=== PATIENT | female | born 1990 | race Caucasian/White ===

== ENCOUNTER → 2017-01-21 | Outpatient (CLI) | payer BC | LOC: FIMAGING 13:16 | PROVIDERS: ATTEND Advanced Practice Midwife | DX: O36.62X0 Maternal care for excessive fetal growth, second trimester, not applicable or unspecified (principal); Z3A.20 20 weeks gestation of pregnancy ==

== ENCOUNTER → 2017-04-28 | Outpatient (CLI) | payer BC | LOC: FIMAGING 12:29 | PROVIDERS: ATTEND Advanced Practice Midwife | DX: O36.63X0 Maternal care for excessive fetal growth, third trimester, not applicable or unspecified (principal); Z3A.34 34 weeks gestation of pregnancy ==

== ENCOUNTER 2017-04-29 19:59 | Observation (INO) | payer BC ==
[2017-04-29] MEDS ORDERED: TERBUTALINE SULFATE 1 MG/ML VIAL SC ONE (20:49)
[2017-04-29] MEDS ORDERED: LR 500 ML IV ONE (20:58)
--- NOTE | 2017-04-29 21:38 | GHP ---
[f rep st] PREOP HISTORY AND PHYSICAL DATE OF ADMISSION: 04/29/2017 REPORT TITLE: Observation OB Note HISTORY OF PRESENT ILLNESS: The patient is a 27-year-old 4, para 2-0-1-2, who is 34-5/7 week s' gestation, a patient who is receiving care at the [facility], who presented com plaining of contractions. Patient has a history of contractions in both of her prior pregnancies; however, term deliveries with both at 40 and 41 weeks. She presented today complaining of worsening contractions. She reports on Friday, she had an episode of a loss of mucous plug and increased discharge, and Friday her contractions increased in intensity. They increased over the co urse of Friday and were worsening today, having 6 or 7 contractions an hour at the most, also increas ing intensity and increasing in frequency. She is having to breathe through them and getting very un comfortable. She denies leakage of fluid or vaginal bleeding. Has had good movement. The pat ient had a followup growth ultrasound with Dr. Trish Koroma yesterday, 04/28/2017. Baby is size great er than dates. Estimated weight at stage is 3101 g, 97th percentile. SID is normal. Anatomy is normal. OTHER REVIEW OF SYSTEMS: Negative except for contractions as above. OBJECTIVE: VITAL SIGNS: She is afebrile. Vital signs stable. heart tones are 130s, reactive , moderate variability category I. She has irritability on the monitor, but no true contractions. PELVIC: Her cervix is closed, 50%, -2, soft, baby is cephalic. ASSESSMENT AND PLAN: 27-year-old 4, para 2-0-1-2 at 34-5/7 weeks' gestation with con tractions. I have offered the patient IV fluid hydration bolus and subcu terbutaline to attempt to h elp the uterine irritability. At this time, I will not proceed with steroids for lung maturity . I do not feel that she at true risk for contractions; she has no cervical change. Will ob serve closely. /[id number]/MODL
== END 2017-04-29 23:16 | disposition home or self-care (01) ==
LOC: FLD 19:59
PROVIDERS: ADMIT Obstetrics & Gynecology; ATTEND Obstetrics & Gynecology
DX: O99.89 Other specified diseases and conditions complicating pregnancy, childbirth and the puerperium (principal); Z3A.34 34 weeks gestation of pregnancy
CPT/HCPCS: G0378 ×2

== ENCOUNTER 2017-06-02 21:12 | Inpatient (IN) | payer BC ==
[2017-06-02] MEDS ORDERED: EPSOM SALT 454 GM TP PRN (21:19)
[2017-06-02] MEDS ORDERED: OXYTOCIN 20 UNIT in LR 1,000 ML IV PRN (21:19)
[2017-06-02] MEDS ORDERED: TERBUTALINE SULFATE 1 MG/ML VIAL IV PRN (21:19)
[2017-06-02] MEDS ORDERED: OLIVE OIL 118 ML BTL MISC PRN (21:19)
[2017-06-02] MEDS ORDERED: LR 1,000 ML IV PRN (21:19)
[2017-06-02] MEDS ORDERED: AMMONIA AROMATIC 1 EACH AMP IH ONE (21:35)
[2017-06-02] MEDS ORDERED: LIDOCAINE 1% 300 MG/30 ML SDV ONE (21:35)
[2017-06-02] MEDS ORDERED: TERBUTALINE SULFATE 1 MG/ML VIAL ONE (21:35)
[2017-06-02] MEDS ORDERED: OLIVE OIL 118 ML BTL ONE (21:35)
[2017-06-02] MEDS ORDERED: MISOPROSTOL 200 MCG TAB ONE (21:35)
[2017-06-02] MEDS ORDERED: OXYTOCIN 10 UNIT/ML VIAL ONE (21:35)
--- NOTE | 2017-06-02 21:44 | OBPROG ---
Labor Progress Note Assessment/Plan: Assessment: cat 1 fhr feeling pain with the contractions however far apart denies great pain coping well with the contractions 2/50/-2 cephalic with last exam per innersole fitter luis e from the center leaking clear fluid gbs negative multip gbs negative Plan:prolonged rom/ planned pitocin per protocol ok with the plan 06/02/17 21:40 Subjective/Intrapartum Course: 06/02/17 21:39 Feeling regular contractions however not routinely has been ruptured 1800p 06/01. Clear fluid. Denies bs. States feling + movement - SVE Dilation (cm): 2 Effacement (%): Less than 50 Station: -2 Membranes: SROM Amniotic Fluid Color: Clear - Contraction Pattern Assessment Current Contraction Pattern: Regular - Physical Exam General Appearance: WD/WN, alert, no apparent distress Respiratory: chest non-tender, lungs clear, normal breath sounds Cardiac/Chest: regular rate, rhythm Abdomen: normal bowel sounds Extremities: normal range of motion, Monique's sign (negative bilaterally) DTR- Lower Extremities: Knee (R): 1+, Knee (L): 1+ (no clonus) Skin: normal color, warm/dry Neuro/Psych: no motor/sensory deficits, alert, normal mood/affect, oriented x 3 ICD10 Worksheet Patient Problems: Problems Problem Status Onset Abdominal pain affecting Acute IUD (intrauterine device) in place Acute Incomplete Acute pre term contractions Acute
[2017-06-02] MEDS ORDERED: OXYTOCIN 30 UNIT in NS 500 ML IV SCH (21:45)
--- NOTE | 2017-06-02 22:14 | GHP ---
[f rep st] HISTORY AND PHYSICAL DATE OF ADMISSION: 06/02/2017 HISTORY OF PRESENT ILLNESS: The patient is a 27-year-old, 4, term 2, P0, A1, living 2, who c omes in from the [facility] with complaint of prolonged rupture of membranes since 6 p.m., on 06/01/2017. The patient had an early ultrasound with an MARIA EUGENIA of 06/05/2017, so she is 39 and 4/7 w eeks today. Denies bloody show. States clear fluid. States positive movement. MEDICAL HISTORY: Depression. ALLERGIES: Food allergies: Avocado, coriander, donohue and eggs. Denies allergies to medications. PREVIOUS PREGNANCIES: In 2008, 40 weeks, vaginal, a male, 24 hours of labor, 8 pounds 7 ounces. A b oy in 2010, 41 weeks, vaginal. A female, 8 hours of labor, 9-1/2 pounds. In 2015, 9 weeks, a miscar riage, [facility]. The patient is planning on . GYNECOLOGICAL HISTORY: Natural family planning, ParaGard and condoms. Negative other gynecological history. SOCIAL HISTORY: Patient is . Denies drug use. Denies tobacco use. PAST SURGICAL HISTORY: In 2014, wisdom tooth extraction. FAMILY HISTORY: Noncontributory. LABORATORY DATA: Patient is A positive, antibody negative. RPR is nonreactive. HIV is negative. R ubella is immune. Hepatitis is nonreactive. Hepatitis C is nonreactive. Pap was within normal limi ts. Gonorrhea and chlamydia were negative. GBS was negative. PHYSICAL EXAMINATION: GENERAL: Patient is awake, alert, oriented x3. LUNGS: Clear bilaterally. A BDOMEN: Bowel sounds are positive in all 4 quadrants. DTRs are 1+ bilaterally with no clonus. Margie ns sign is negative bilaterally. The patient is jose luis irregularly. Last exam at 6 o'clock by Angelica, the client resolution specialist from [facility]. Patient was 250, -2 cephalic. PLAN OF CARE: 1. GBS negative. 2. Pitocin per protocol. 3. Discussed risks, benefits, and alternatives with the patient, has consented to Pitocin. States v itamin K okay for . Declined other interventions. /[id number]/MODL
[2017-06-02 22:45] LABS: PLATELET COUNT 182 10^3/uL (150-400)
--- NOTE | 2017-06-03 00:35 | OBPROG ---
Labor Progress Note Assessment/Plan: Assessment: cat 2 fhr feeling greater pain with the contractions 4-5cephalic leaking clear fluid gbs negative multip gbs negative Plan:pitocin per protocol 06/02/17 21:40 06/03/17 00:30 Subjective/Intrapartum Course: pitocin encouraging greater contractions in number to allow for change in cervix prolonged srom + 24h afebrile, 06/02/17 21:39 Feeling regular contractions however not routinely has been ruptured 1800p 06/01. Clear fluid. Denies bs. States feeling + movement 06/03/17 00:32 Doing well. Coping well feeling greater pain with the contractions. exam 4-5 Objective: 06/02/17 22:00 Patient ABO/Rh A POSITIVE 06/02/17 22:00 - SVE Dilation (cm): 4, 5 Membranes: SROM Amniotic Fluid Color: Clear - Contraction Pattern Assessment Current Contraction Pattern: Regular - FHR Assessment [place] FHR (bpm): 125 FHR Pattern Variability: Moderate FHR Category: 2 - AP Antepartum Course: srom prolonged, gbs negative temp wnl. transfer from center. depression, no other difficulties with the 06/03/17 00:31 Oxytocin Orders Assessment - Pre-Induction/Augmentation Assessment Gestational Age: 39 week(s) and 6 day(s) ICD10 Worksheet Patient Problems: Problems Problem Status Onset Abdominal pain affecting Acute IUD (intrauterine device) in place Acute Incomplete Acute pre term contractions Acute
[2017-06-03] MEDS ORDERED: fentaNYL 2MCG/ML/BUP 0.1% RTU 100 ML BAG EP ONE (04:57)
[2017-06-03] MEDS ORDERED: PHENYLEPHRINE HCL 100 MCG/ML SYR ONE (04:58)
[2017-06-03] MEDS ORDERED: BUPIVACAINE 0.25% 30 ML SDV ONE (04:58)
[2017-06-03] MEDS ORDERED: fentaNYL 100 MCG/2 ML INJ ONE (04:58)
[2017-06-03] MEDS ORDERED: LIDO/EPI 2% **for epidural** 20 ML SDV ONE (05:29)
--- NOTE | 2017-06-03 06:15 | PREANESOB ---
Obstetric Pre-Anesthesia Info - General Info Proposed Procedure: labor : 4 Para: 2 MARIA EUGENIA: 06/03/17 Gestational Age: 39 week(s) and 6 day(s) - Labor Status Cervical Dilation per last OB SVE: 4, 5, 9 Station per last OB SVE: -2 Amniotic Fluid Color: Clear Pitocin: In Use Indications for Labor Analgesia: Augmentation of Labor, Pain Control, Possible Indications for Current Section: Arrest of Dilation Labor Epidural: Proposed Anesthesia ROS: [facility]thing Center transfer, dilated to 9 cm then stopped, Denies any medical problems or complications with this Allergies/Adverse Reactions: Allergy/AdvReac Type Severity Reaction Status Date / Time No Known Allergies Allergy Unverified 08/10/15 18:56 Home Medications: Medication Instructions Recorded 08/10/15 MAGNESIUM 04/29/17 Papaya Enzyme PRN 04/29/17 Probiotic 04/29/17 Iron 06/02/17 Visit Medications: Generic Name Dose Route Start Last Admin Trade Name Freq PRN Reason Stop Dose Admin Lactated Ringer's 1,000 mls @ 0 mls/hr 06/02/17 21:19 06/02/17 22:08 Lr IV 06/03/17 21:18 1,000 mls PRN PRN Administration SEE PROTOCOL CONDITIONS Protocol Per Protocol Oxytocin 20 unit/ Lactated 1,002 mls @ 150 mls/hr 06/02/17 21:19 Ringer's IV PRN PRN Post- bleeding Oxytocin 30 unit/ Sodium 503 mls @ 0 mls/hr 06/02/17 21:45 06/02/17 22:08 Chloride IV 11/29/17 21:44 503 mls CONT PATRICIA Administration Protocol Per Protocol Ibuprofen 600 mg 06/02/17 21:19 Motrin PO 11/29/17 21:18 Q6HRS PRN post , inflammation Magnesium Sulfate 454 gm 06/02/17 21:19 Epsom Salt TP 11/29/17 21:18 Q1H PRN perineal discomfort Superior Oil 118 ml 06/02/17 21:19 Sweet Oil MISC 11/29/17 21:18 ONCE PRN perineal massage Terbutaline Sulfate 0.25 mg 06/02/17 21:19 Brethine IV 11/29/17 21:18 ONCE PRN Tachysystole Discontinued Medications Generic Name Dose Route Start Last Admin Trade Name Freq PRN Reason Stop Dose Admin Ammonia (Aromatic Spirit) Confirm 06/02/17 21:35 Ammonia Aromatic Administered 06/02/17 21:36 Dose 1 each IH .STK-MED ONE Bupivacaine HCl Confirm 06/03/17 04:58 Sensorcaine 0.25% Sdv Administered 06/03/17 04:59 Dose 30 ml .ROUTE .STK-MED ONE Fentanyl Confirm 06/03/17 04:58 Sublimaze Administered 06/03/17 04:59 Dose 100 mcg .ROUTE .STK-MED ONE Fentanyl/Bupivacaine HCl Confirm 06/03/17 04:57 Fentanyl/Bupivacaine/Ns 2 Mcg/Ml 0.1% (Premix Administered 06/03/17 04:58 Dose 100 ml EP .STK-MED ONE Lidocaine HCl Confirm 06/02/17 21:35 Lidocaine Hcl 1% Administered 06/02/17 21:36 Dose 300 mg .ROUTE .STK-MED ONE Lidocaine/Epinephrine Confirm 06/03/17 05:29 Xylocaine 2%-Epi 1:200,000 Administered 06/03/17 05:30 Dose 20 ml .ROUTE .STK-MED ONE Misoprostol Confirm 06/02/17 21:35 Cytotec Administered 06/02/17 21:36 Dose 1,000 mcg .ROUTE .STK-MED ONE Superior Oil Confirm 06/02/17 21:35 Sweet Oil Administered 06/02/17 21:36 Dose 118 ml .ROUTE .STK-MED ONE Oxytocin Confirm 06/02/17 21:35 Pitocin Administered 06/02/17 21:36 Dose 60 unit .ROUTE .STK-MED ONE Phenylephrine HCl Confirm 06/03/17 04:58 Neosynephrine Administered 06/03/17 04:59 Dose 1,000 mcg .ROUTE .STK-MED ONE Terbutaline Sulfate Confirm 06/02/17 21:35 Brethine Administered 06/02/17 21:36 Dose 1 mg .ROUTE .STK-MED ONE - Anesthesia History Response to Local Anesthetics: Normal Anesthesia & Operative History: No Prior Problems (D&C, Dental) Family Anesthesia History: Negative - Social History Substance Use/Abuse: Denies - Vital Signs Height/Weight (Nursing): Height 167.64 cm Weight 88.451 kg - Focused Exam Neck exam: FROM Mallampati Score: Class 2 Mouth exam: normal dental/mouth exam Pulmonary: no respiratory distress Cardiovascular: regular rate and rhythym Labs: 06/02/17 22:00 Patient ABO/Rh A POSITIVE 06/02/17 22:00 - Plan Anesthetic Plan: glo Consent Signed and on Chart: Yes Patient/Guardian Understands and Agrees to Plan: Yes Urgent/Emergent Case: [place] completed preop but documented later for safe timely pt care
[2017-06-03] MEDS ORDERED: PHENYLEPHRINE HCL 100 MCG/ML SYR IVP PRN (06:21)
[2017-06-03] MEDS ORDERED: ONDANSETRON 4 MG/2 ML VIAL IVP PRN (06:21)
[2017-06-03] MEDS ORDERED: NALOXONE HCL 0.4 MG/ML INJ IVP PRN (06:21)
[2017-06-03] MEDS ORDERED: fentaNYL 2MCG/ML/BUP 0.1% RTU 100 ML EP SCH (06:30)
[2017-06-03] MEDS ORDERED: LR 500 ML IV SCH (06:30)
--- NOTE | 2017-06-03 06:41 | OBPROG ---
Labor Progress Note Assessment/Plan: Assessment: cat 2 fhr more comfortable with the epidural feeling some back pian with the contractions 10/100/+1 cephalic after the epidural leaking clear fluid gbs negative multip afebrile chnaging positions frequently occasional earlys and variables and lower baseline Plan:pitocin per protocol, expectant management of labor 06/02/17 21:40 06/03/17 00:30 06/03/17 06:39 Subjective/Intrapartum Course: pitocin encouraging greater contractions in number to allow for change in cervix prolonged srom + 24h afebrile, 06/02/17 21:39 Feeling regular contractions however not routinely has been ruptured 1800p 06/01. Clear fluid. Denies bs. States feeling + movement 06/03/17 00:32 Doing well. Coping well feeling greater pain with the contractions. exam 4-5 06/03/17 06:38 Fairly comfortable with the epidural. Continuing to feel back pain with the epidural. Objective: 06/02/17 22:00 Patient ABO/Rh A POSITIVE 06/02/17 22:00 - SVE Membranes: SROM Amniotic Fluid Color: Clear - Contraction Pattern Assessment Current Contraction Pattern: Regular - AP Antepartum Course: srom prolonged, gbs negative temp wnl. transfer from center. depression, no other difficulties with the 06/03/17 00:31 Oxytocin Orders Assessment - Pre-Induction/Augmentation Assessment Gestational Age: 39 week(s) and 6 day(s) ICD10 Worksheet Patient Problems: Problems Problem Status Onset Abdominal pain affecting Acute IUD (intrauterine device) in place Acute Incomplete Acute pre term contractions Acute
[2017-06-03] MEDS ORDERED: CALCIUM CARBONATE 500 MG CHEWABLE TAB PO PRN (06:46)
[2017-06-03] MEDS ORDERED: ACETAMINOPHEN 325 MG TAB PO PRN (10:18)
--- NOTE | 2017-06-03 10:29 | OBDEL ---
Info Type: Vaginal Presentation at Delivery: Vertex L&D Analgesia/Anesthesia Type: Epidural GBS+: No Intrapartum Medications: Generic Name Dose Route Start Last Admin Trade Name Rosario PRN Reason Stop Dose Admin Calcium Carbonate 500 mg 06/03/17 06:46 06/03/17 06:58 Tums PO 11/30/17 06:45 500 mg TID PRN Administration Indigestion Lactated Ringer's 1,000 mls @ 0 mls/hr 06/02/17 21:19 06/02/17 22:08 Lr IV 06/03/17 21:18 1,000 mls PRN PRN Administration SEE PROTOCOL CONDITIONS Protocol Per Protocol Oxytocin 30 unit/ Sodium 503 mls @ 0 mls/hr 06/02/17 21:45 06/02/17 22:08 Chloride IV 11/29/17 21:44 503 mls CONT PATRICIA Administration Protocol Per Protocol Phenylephrine HCl 100 mcg 06/03/17 06:21 06/03/17 07:44 Neosynephrine IVP 11/30/17 06:20 100 mcg .Q2M PRN Administration Hypotension - Hospital Course Intrapartum: pitocin encouraging greater contractions in number to allow for change in cervix prolonged srom + 24h afebrile, 06/02/17 21:39 Feeling regular contractions however not routinely has been ruptured 1800p 06/01. Clear fluid. Denies bs. States feeling + movement 06/03/17 00:32 Doing well. Coping well feeling greater pain with the contractions. exam 4-5 06/03/17 06:38 Fairly comfortable with the epidural. Continuing to feel back pain with the epidural. Indications for Delivery: SROM Vaginal Delivery - Delivery Provider Delivery Physician/CNM: Torri Finney - Labor and Delivery Onset of Contractions Date: 06/02/17 Onset of Contractions Type: Augmented Rupture of Membranes Date: 06/01/17 Rupture of Membranes Time: 18:30 Rupture of Membranes Type: Spontaneous Amniotic Fluid Color: Clear Dilation Complete Date: 06/03/17 Dilation Complete Time: 06:40 Placenta Delivery Date: 06/03/17 Placenta Delivery Time: 10:03 Vaginal Sponge Count Correct: Yes Vaginal Needle Count Correct: Yes Vaginal Sweep Performed: Yes EBL: 300 Delivery Events: Nuchal Cord (X1 loose and reduced) - Medications Labor Augmentation/Induction Methods Used: Pitocin Labor Augmentation/Induction Indication: Inadequate Ctx Strength Operative Report - Delivery Indications for Current Section: Arrest of Dilation Data MARIA EUGENIA: 06/03/17 Gestational Age: 40 week(s) and 0 day(s) [place] Delivery Date: 06/03/17 Delivery Time: 09:55 Sex of : Male (Juna) Score (1 Min): 9 Score (5 Min): 9 ICD10 Worksheet Patient Problems: Problems Problem Status Onset (spontaneous vaginal delivery) Acute - ICD10 Problem Qualifiers (1) (spontaneous vaginal delivery)
[2017-06-03] MEDS: IBUPROFEN 600 MG TAB PO PRN ×2 (10:39→17:20)
[2017-06-03 13:34] VITALS: BP 81/48; PULSE 89; RESP 17; TEMP 98; O2SAT 94
--- NOTE | 2017-06-03 16:31 | OBPP ---
Progress Note Assessment/Plan: Assessment: PPD 1/2 s/p desires d/c Plan: baby at risk due to prolonged ROM but peds feels comfortable with d/c and pt desires to go. pt is stable from bleeding standpoint. 06/03/17 16:28 Subjective/ Course: 06/03/17 16:29 pt requests d/c from RN - doing fine per RN and bleeding is low. Pt able to amb and JACOB worn off. baby is cleared from peds. Objective: 06/02/17 22:00 Patient ABO/Rh A POSITIVE 06/02/17 22:00 Temp Pulse Resp BP Pulse Ox 36.7 C 89 17 81/48 L 94 06/03/17 13:00 06/03/17 13:00 06/03/17 13:00 06/03/17 13:00 06/03/17 13:00 Uterine Position/Fundal Height: Umbilicus -1 Uterine Tone: Firm Physical Exam - Physical Exam Abdomen: non-tender, soft, other (FF firm umb-1, lochia scant) Extremities: non-tender Skin: normal color, warm/dry Neuro/Psych: alert, normal mood/affect
--- NOTE | 2017-06-03 16:35 | OBGCSDC ---
General Delivery Information - General Info : 4 Para: 3 Abortions: 0 Type: Vaginal L&D Analgesia/Anesthesia Type: Epidural Admission Date: 06/02/17 Labs: Patient ABO/Rh A POSITIVE 06/02/17 22:00 Hct 37.7 % (38.0-47.0) L 06/02/17 22:00 - Hospital Course Antepartum: srom prolonged, gbs negative temp wnl. transfer from center. depression, no other difficulties with the 06/03/17 00:31 Intrapartum: pitocin encouraging greater contractions in number to allow for change in cervix prolonged srom + 24h afebrile, 06/02/17 21:39 Feeling regular contractions however not routinely has been ruptured 1800p 06/01. Clear fluid. Denies bs. States feeling + movement 06/03/17 00:32 Doing well. Coping well feeling greater pain with the contractions. exam 4-5 06/03/17 06:38 Fairly comfortable with the epidural. Continuing to feel back pain with the epidural. : 06/03/17 16:29 pt requests d/c from RN - doing fine per RN and bleeding is low. Pt able to amb and JACOB worn off. baby is cleared from peds. Vaginal - Delivery Provider Delivery Physician/CNM: Torri Finney - Diagnosis Labor: Augmented Rupture of Membranes Type: Spontaneous Amniotic Fluid Color: Clear Delivery Events: Nuchal Cord (X1 loose and reduced) - Delivery Indications for Current Section: Arrest of Dilation EBL: 300 [place] Data MARIA EUGENIA: 06/03/17 Gestational Age: 40 week(s) and 0 day(s) [place] Delivery Date: 06/03/17 Delivery Time: 09:55 Sex of Infant: Male Score (1 Min): 9 Score (5 Min): 9 Discharge Information - Discharge Information Condition: Good Instruction/Follow Up: See Instruction Sheet, Six Weeks (with [place] Births)
== END 2017-06-03 18:00 | disposition home or self-care (01) | DRG 775 ==
LOC: FLD 21:12 → FOB 06-03 13:00
PROVIDERS: ADMIT Advanced Practice Midwife; ATTEND Advanced Practice Midwife
PROC: 10E0XZZ Delivery of Products of Conception, External Approach (ICD-10-PCS; principal; 2017-06-02)
DX: O62.1 Secondary uterine inertia (principal); Z37.0 Single live birth; Z3A.40 40 weeks gestation of pregnancy; O69.82X0 Labor and delivery complicated by other cord entanglement, without compression, not applicable or unspecified
CPT/HCPCS: J2370; J3010; J3105